=== PATIENT | male | born 1990 ===

== ENCOUNTER 2018-06-30 08:15 | Observation (INO) | payer OTHER, BC ==
[~2018-06-30] VITALS: Ht 182.9 cm; Wt 68.0 kg
--- NOTE | 2018-06-30 12:00 | NUR ---
SURGERY: PT TO THE OR AT THIS TIME. PT HAS BEEN UP TO VOID. CLOTHING REMOVED. 18G IN LEFT AC FIELD START. BLOOD CONSENT COMPLETED. UNCLE AT BEDSIDE.
--- NOTE | 2018-06-30 13:07 | NUR ---
CONSENT/BLOOD CONSENT/ANESTHESIA CONSENT SIGNED. PAS, IV INFUSING. PT C/O PAIN RT HAND, ELEVATED ON PILLOW, DRAINAGE THROUGH DRSG NOTED. READIED FOR SURGERY. NONSMOKER, LUNGS CL.
[2018-06-30] MEDS ORDERED: Percocet 5-3251 EACH PO (17:18)
[2018-06-30] MEDS ORDERED: Bactrim Ds Tab1 EACH PO (17:21)
--- NOTE | 2018-06-30 17:47 | NUR ---
PT HAS BEEN STABLE POST OP. SPLINT WITH JERRI WRAP TO RIGHT ARM. PT HAS CIRC AND SENSATION THAT ARE WNL. PT CAN WIGGLE FINGERS. IV ABX GIVEN X 2 DOSES POST OP. SCRIPTS GIVEN TO FAMILY, PLAN ON DC HOME TONIGHT TO FOLLOW UP WITH HAND SPECIALIST IN [place]. PERCOCET GIVEN FOR PAIN. LYNDA REG DIET. VOIDING WELL. MIN ASSIST OOB. USES CALL LIGHT APPROPRIATELY PRN.
--- NOTE | 2018-06-30 18:45 | NUR ---
DISCHARGE: PT DC TO HOME AT THIS TIME. IV DC'D WNL. VERBAL UNDERSTANDING OF INSTRUCTIONS, MEDICATIONS, FOLLOW UP AND PROBLEMS TO REPORT. SCRIPTS GIVEN. LEFT AMBULATORY TO CAR WITH FAMILY, BELONGINGS IN HAND.
--- NOTE | 2018-07-02 09:18 | NUR ---
07/02/18 0918 Abril Najera VERIFICATIONS: EDIT CHART.
== END 2018-06-30 18:45 | disposition home or self-care (01) ==
LOC: ER 08:15 → SURS 08:16
PROVIDERS: ADMIT Orthopaedic Surgery
PROC: 0XQJXZZ Repair Right Hand, External Approach (ICD-10-PCS; principal; 2018-06-30 13:30)
DX: S66.322A Laceration of extensor muscle, fascia and tendon of right middle finger at wrist and hand level, initial encounter (principal); S61.411A Laceration without foreign body of right hand, initial encounter; V89.2XXA Person injured in unspecified motor-vehicle accident, traffic, initial encounter
CPT/HCPCS: 12002; 70450; 72125; 73110; 73130; 90471; 90714; 96365-59; 96375-59; 99285-25; G0378; J1100; J1170; J1885; J2250; J2270; J2405; J3010; J3370; J7050; J7120